=== PATIENT | female | born 1955 | race Caucasian/White ===

== ENCOUNTER 2018-08-02 13:17 | Emergency (ER) | payer BC ==
[~2018-08-02] VITALS: Ht 172.7 cm; Wt 102.1 kg
[~2018-08-02 13:17] MED LIST: Ativan0.5 MG PO; TOBDEXOPO LEFTEYE
[2018-08-02] MEDS ORDERED: LORA.5 PO (13:34)
[2018-08-02] MEDS ORDERED: Ativan0.5 MG PO (14:16)
== END 2018-08-02 16:25 | disposition home or self-care (01) ==
LOC: ER 13:17
DX: F41.9 Anxiety disorder, unspecified (principal); I10 Essential (primary) hypertension
CPT/HCPCS: 96372; 99283-25; J0360

== ENCOUNTER → 2019-03-10 | Outpatient (CLI) | payer BC ==
[~2019-03-10] MED LIST changes: +LORA.5 PO
[2019-03-10 12:36] LABS: Sodium, Urine, Random 44 mmol/L (20-110)
[2019-03-10 12:44] LABS: Osmolality, Urine 434 mos/kg (15-1400)
== END | disposition home or self-care (01) ==
LOC: LAB SHORT 09:32 → LAB UCHC 09:32 → LAB FUT 03-02 12:15
PROVIDERS: Physician Assistant
DX: E87.1 Hypo-osmolality and hyponatremia (principal)
CPT/HCPCS: 36415; 83930; 83935; 84300

== ENCOUNTER → 2024-11-06 | Outpatient (CLI) | payer MEDICARE, BC, OTHER ==
[2024-11-06 15:14] LABS: Hematocrit 35.9 % (33.0-51.0); Hemoglobin 12.5 g/dL (11.5-16.0); Mean Corpuscular HGB Conc 34.8 g/dL (31.5-36.5); Mean Corpuscular Volume 91 fL (80-100); NRBC ABSOLUTE 0.00 K/mm3 (0.00-0.02); NRBC Auto 0.0 /100 WBC (0.0-0.2); Platelet Count 263 K/mm3 (150-400); RDW Coefficient Variation 13.7 % (11.7-14.2); RDW Standard Deviation 46.2 fL (35.1-46.3)
[2024-11-06 16:14] LABS: Thyroid Stimulating Hormone 2.58 uIU/mL (0.360-4.800); Total Iron Binding Capacity 231.0 ug/dL (250-450)
[2024-11-06 16:26] LABS: Alanine Aminotransfer (ALT/SGP 25.0 U/L (12-78); Albumin, Blood 4.1 g/dL (3.4-5.0); Albumin/Globulin Ratio 1.1 (0.8-1.8); Anion Gap 13.0 mmol/L (3-11); Aspartate Aminotrans (AST/SGOT 23.0 U/L (12-37); Bilirubin, Total 1.0 mg/dL (0.1-1.0); Blood Urea Nitrogen 6.0 mg/dL (8-24); CO2, Blood 24.0 mmol/L (21-32); Calcium, Blood 9.5 mg/dL (8.5-10.1); Chloride, Blood 96.0 mmol/L (98-108); Creatinine, Blood 0.44 mg/dL (0.40-1.00); Globulin, Blood 3.8 g/dL (2.2-4.0); Glucose, Blood 94.0 mg/dL (70-99); Potassium, Blood 3.9 mmol/L (3.5-5.5); Sodium, Blood 129.0 mmol/L (136-145); Total Protein, Blood 7.9 g/dL (6.4-8.2)
== END ==
LOC: LAB SHORT 12:36 → LAB 12:36
PROVIDERS: Nurse Practitioner Family
DX: Z00.00 Encounter for general adult medical examination without abnormal findings (principal); F10.20 Alcohol dependence, uncomplicated; D52.8 Other folate deficiency anemias; E87.1 Hypo-osmolality and hyponatremia; R73.9 Hyperglycemia, unspecified
CPT/HCPCS: 80053; 82746; 83036; 83540; 83550; 83880; 84439; 84443; 84481; 85027

== ENCOUNTER 2025-02-11 17:02 | Emergency (ER) | payer MEDICARE, BC, OTHER ==
[~2025-02-11] VITALS: Ht 172.7 cm; Wt 95.2 kg
[2025-02-11] MEDS ORDERED: AMLODIPINE BESY10 MG PO (19:27)
[2025-02-11] MEDS ORDERED: METOPROLOL SUCC25 MG PO (19:27)
[2025-02-11] MEDS ORDERED: BUSPIRONE HCL10 M6 PO (19:27)
[2025-02-11] MEDS ORDERED: LISI20 PO (19:28)
[2025-02-11] MEDS ORDERED: ATOR40TA PO (19:28)
[2025-02-11 19:46] VITALS: BP 196/45
== END 2025-02-11 19:49 | disposition home or self-care (01) ==
LOC: ER 17:02
DX: I10 Essential (primary) hypertension (principal); Z79.899 Other long term (current) drug therapy
CPT/HCPCS: 99283